=== PATIENT | female | born 1930 | race African-American/Black ===

== ENCOUNTER 2017-04-19 10:08 | Outpatient (CLI) ==
--- NOTE | 2017-04-19 11:59 | MAMMO ---
EXAM: Bilateral digital screening mammogram (2-D and 3-D) History: Screening Comparison: Bilateral mammogram 04/15/2016 Findings: MLO and CC views of bilateral breasts demonstrate scattered fibroglandular breast parenchy ma. CAD was reviewed by the radiologist. Tomosynthesis was performed. Postsurgical changes again s een within the right breast. Stable benign bilateral vascular calcifications. There are no dominant masses, no suspicious microcalcifications and no architectural distortions Impression: Benign stable mammogram. Recommend followup routine screening mammography in 1 year. BIRADS 2
== END 2017-04-19 10:09 | disposition home or self-care (01) ==
LOC: RAD 10:08
PROVIDERS: ATTEND Family Medicine
DX: Z12.31 Encounter for screening mammogram for malignant neoplasm of breast (principal); Z85.3 Personal history of malignant neoplasm of breast
CPT/HCPCS: 77067

== ENCOUNTER 2018-01-31 11:07 | Day surgery (SDC) ==
[2018-01-31] MEDS ORDERED: LIDOCAINE 1% 20 ML MDV ID STA (11:32)
[2018-01-31] MEDS ORDERED: VERSED ONE (13:15)
[2018-01-31] MEDS ORDERED: DIPRIVAN 20 ML VIAL IVP ONE (13:15)
[2018-01-31 13:28] VITALS: TEMP 98.4
[2018-01-31 14:55] VITALS: BP 122/67
--- NOTE | 2018-02-01 09:33 | OP ---
PROCEDURE: COLONOSCOPY TO THE CECUM. ENDOSCOPIST: Sylvia LAWSON M.D. INDICATION: HEME POSITIVE STOOLS INSTRUMENT: PCFH-[id number]. MEDICATION: PER ANESTHESIA. PROCEDURE: The patient was positioned for colonoscopy. The digital rectal exam was negative. The colonoscope was inserted through the anus and advanced to the cecum. The cecum was identified using the ileocecal valve and the appendiceal orifice as landmarks. The scope was slowly withdrawn through an adequately prepped colon. The exam was normal with the exception of diverticulosis. Retroflex exam was negative. Withdraw time 6 minutes and 40 seconds. PLAN: 1. Repeat as needed CC: Dr. Ron CARRINGTON
== END 2018-01-31 14:30 | disposition home or self-care (01) ==
LOC: SURG 11:07
PROVIDERS: ATTEND Internal Medicine Gastroenterology
DX: R19.5 Other fecal abnormalities (principal)

== ENCOUNTER 2018-09-02 10:47 | Outpatient (CLI) ==
--- NOTE | 2018-09-02 11:18 | DI ---
EXAM: CHEST FRONTAL AND LATERAL VIEWS HISTORY: Cough. COMPARISON: 03/15/2012 FINDINGS: Heart size approaching upper limit normal, stable. There is at least mild atherosclerotic disease. Mild hyperinflation. No acute infiltrates are seen. No vascular congestion. There is no consolidation, visible pleural fluid or pneumothorax. Bones reveal no acute fracture. IMPRESSION: Mild hyperinflation. No acute cardiopulmonary process.
--- NOTE | 2018-09-02 13:41 | CT ---
EXAM: CT chest without contrast HISTORY: Cough COMPARISON: None TECHNIQUE: CT chest performed without intravenous contrast. Coronal and sagittal reformatted images obtained FINDINGS: Thyroid and thoracic inlet appear normal. Heart normal in size. Coronary calcifications. No pericardial effusion. 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 Mild atherosclerosis. Small h iatal hernia. Evaluation for lymphadenopathy limited without contrast. No lymphadenopathy identifie d. Visualized portion upper abdomen demonstrates no acute abnormality. Mild chronic diverticulosis in the incompletely imaged colon. No acute abnormalities of the bones. Degenerative change in the s pine. Central airway patent. No airspace consolidation. Minimal right basilar atelectasis and/or s carring. No pleural effusion. No pneumothorax. Granulomatous calcification. IMPRESSION: 1. No acute cardiopulmonary process. 2. Coronary calcifications. 3. 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 4. Small hiatal hernia.
== END 2018-09-02 10:48 | disposition home or self-care (01) ==
LOC: RAD 10:47
PROVIDERS: ATTEND Family Medicine
DX: R05 Cough (principal); Z85.3 Personal history of malignant neoplasm of breast